=== PATIENT | female | born 1990 | race Caucasian/White ===

== ENCOUNTER → 2023-06-13 09:07 | Outpatient (REF) | payer OTHER, SELFPAY | LOC: PNTC 09:07 | PROVIDERS: ATTENDING PHYSICIAN Obstetrics & Gynecology | DX: E05.00 Thyrotoxicosis with diffuse goiter without thyrotoxic crisis or storm (principal) | CPT/HCPCS: 36415; 59025; 76815 ==

== ENCOUNTER → 2023-06-20 09:07 | Outpatient (REF) | payer OTHER, SELFPAY | LOC: PNTC 09:07 | PROVIDERS: ATTENDING PHYSICIAN Obstetrics & Gynecology | DX: O99.280 Endocrine, nutritional and metabolic diseases complicating pregnancy, unspecified trimester (principal) | CPT/HCPCS: 59025; 76816 ==

== ENCOUNTER 2023-06-24 21:59 | Inpatient (IN) | payer OTHER, SELFPAY ==
[2023-06-24 22:16] VITALS: BMI 26.0
[2023-06-24] MEDS: LR 1000 IV (22:35)
[2023-06-24] MEDS: TYLENOL 1000 MG PO (22:45)
[2023-06-24] MEDS: PEPCID 40 MG PO (22:45)
[2023-06-24 22:48] LABS: Hematocrit 27.9 % (37.0-47.0); Hemoglobin 10.3 g/dL (12.0-16.0); Mean Corp Hgb Conc. 36.9 g/dL (33.0-37.0); Mean Corpuscular Hgb 30.3 pg (27.0-31.0); Mean Corpuscular Volume 82.1 fL (81.0-99.0); Mean Platelet Volume 9.1 fL (7.4-10.4); Platelet Count 196 10^3/uL (130-400); Red Cell Dist. Width 12.1 % (11.5-14.5); White Blood Cell Count 9.3 10^3/uL (4.8-10.8)
[2023-06-24] MEDS: BICITRA 30 ML PO (22:49)
[2023-06-24] MEDS: ZITHROMAX INFUSION 250 IV (22:50)
[2023-06-24] MEDS: ANCEF 10 IV (22:54)
[2023-06-24] MEDS: PENICILLIN 110 UNITS IV (23:10)
[2023-06-24] MEDS: PITOCIN 30 UNITS/NSS 500 ML IV (23:30)
[2023-06-25] MEDS: MORPHINE SULFATE 2 MG IV ×3 (01:50→04:14)
[2023-06-25 02:21] VITALS: BP 114/72
[2023-06-25] MEDS: PITOCIN 30 UNITS/NSS 500 ML IV (02:48)
[2023-06-25] MEDS: TORADOL 15 MG IV ×3 (06:47→21:55)
[2023-06-25 06:49] LABS: Hematocrit 26.8 % (37.0-47.0); Hemoglobin 9.5 g/dL (12.0-16.0); Mean Corp Hgb Conc. 35.4 g/dL (33.0-37.0); Mean Corpuscular Hgb 30.2 pg (27.0-31.0); Mean Corpuscular Volume 85.1 fL (81.0-99.0); Mean Platelet Volume 9.3 fL (7.4-10.4); Platelet Count 186 10^3/uL (130-400); Red Blood Cell Count 3.15 10^6/uL (4.20-5.40); Red Cell Dist. Width 11.8 % (11.5-14.5); White Blood Cell Count 14.3 10^3/uL (4.8-10.8)
--- NOTE | 2023-06-25 07:44 | W.PN.ANS.POP ---
Anesthesia Post Operative
- Anesthesia Post Op Note
Vital Signs Stable-See Nursing Note: Yes
Airway Patent: Yes
Adequate Pain Control: Yes
Change in Mental Status: No
Current Postoperative Nausea & Vomiting: No
Anesthesia Complications: No
General Anesthetic Recall: No
Unplanned Admission: No
Post Op Hydration Adequate: Yes
[2023-06-25] MEDS: SENOKOT-S 1 TABLET PO (08:52)
[2023-06-25] MEDS: PRENATAL PLUS 1 TABLET PO (08:52)
[2023-06-25] MEDS: PROPYLTHIOURACIL 50 MG PO (08:52)
[2023-06-25 16:20] LABS: Syphilis/T. pallidum Ab Reflex Negative (Negative)
[2023-06-25] MEDS: PROPYLTHIOURACIL PO (17:34)
[2023-06-25] MEDS: FEOSOL 325 MG PO (20:12)
[2023-06-25] MEDS: PROPYLTHIOURACIL 100 MG PO (21:54)
[2023-06-25] MEDS: FLUSH (NSS) 3 FLUSH IV (22:01)
[2023-06-25] MEDS: MYLICON 80 MG PO (22:18)
--- NOTE | 2023-06-26 04:10 | DOWNTIME ---
There was a [employer] Downtime on 06/26/2023 from 0111 to 06/26/2023 at 0405. Downtime documentation of patient's care, including medication administrations, has been reconciled in the electronic record per guidelines. Refer to the
patient's paper chart under the miscellaneous tab to see printed paper medication records and downtime forms.
[2023-06-26] MEDS: MOTRIN 600 MG PO ×2 (06:21→12:32)
[2023-06-26] MEDS: MYLICON 80 MG PO (06:27)
[2023-06-26] MEDS: PRENATAL PLUS PO (08:40)
[2023-06-26] MEDS: SENOKOT-S 1 TABLET PO (08:40)
[2023-06-26] MEDS: FEOSOL 325 MG PO (08:41)
[2023-06-26] MEDS: PROPYLTHIOURACIL 50 MG PO (08:41)
== END 2023-06-26 13:42 | disposition home or self-care (01) | DRG 788 ==
LOC: LDRP 21:59
PROVIDERS: ADMITTING PHYSICIAN Obstetrics & Gynecology; FAMILY PHYSICIAN Family Medicine
PROC: 0HB7XZZ Excision of Abdomen Skin, External Approach (ICD-10-PCS; 2023-06-25)
PROC: 10D00Z1 Extraction of Products of Conception, Low, Open Approach (ICD-10-PCS; 2023-06-25)
DX: O34.211 Maternal care for low transverse scar from previous cesarean delivery (principal); Z3A.39 39 weeks gestation of pregnancy; Z37.0 Single live birth; L91.0 Hypertrophic scar; L90.5 Scar conditions and fibrosis of skin; O99.72 Diseases of the skin and subcutaneous tissue complicating childbirth; O42.02 Full-term premature rupture of membranes, onset of labor within 24 hours of rupture; E05.00 Thyrotoxicosis with diffuse goiter without thyrotoxic crisis or storm; O99.284 Endocrine, nutritional and metabolic diseases complicating childbirth; O90.81 Anemia of the puerperium; D64.9 Anemia, unspecified; O43.123 Velamentous insertion of umbilical cord, third trimester; O99.893 Other specified diseases and conditions complicating puerperium; R00.1 Bradycardia, unspecified; O99.824 Streptococcus B carrier state complicating childbirth; Z91.199 Patient's noncompliance with other medical treatment and regimen due to unspecified reason
CPT/HCPCS: 88307; 85027; 86780; 86850; 86900; 86901